=== PATIENT | female | born 2000 | race Caucasian/White ===

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

== ENCOUNTER 2022-03-11 00:48 | Emergency (ER) | payer BC ==
[~2022-03-11] VITALS: Ht 165.1 cm; Wt 97.5 kg
[~2022-03-11 00:48] MED LIST changes: +CYCLOBENZAPRINE10 MG PO
[2022-03-11] MEDS ORDERED: MINOCYCLINE HYD50 MG PO (01:00)
[2022-03-11] MEDS ORDERED: METRONIDAZOLE45 G1 T (01:01)
[2022-03-11 01:16] LABS: BILIRUBIN Negative (Negative); BLOOD 3+ (Negative); CLARITY Clear (Clear); COLOR Yellow (Yellow); GLUCOSE Negative (Negative); KETONE Negative (Negative); LEUKO ESTERASE Trace (Negative); NITRITE Negative (Negative); PH 6.5 (4.5-8.0)
[2022-03-11 01:25] LABS: BACTERIA 1+; MUCOUS 1+; RBC 16-20 rbc/hpf (0-2)
[2022-03-11] MEDS ORDERED: SEPTDS PO (02:46)
== END 2022-03-11 03:02 | disposition home or self-care (01) ==
LOC: ED 00:48
PROVIDERS: Emergency Medicine
DX: N39.0 Urinary tract infection, site not specified (principal); M79.7 Fibromyalgia; Z88.8 Allergy status to other drugs, medicaments and biological substances

== ENCOUNTER 2022-05-22 03:41 | Emergency (ER) | payer BC ==
[~2022-05-22 03:41] MED LIST changes: +METRONIDAZOLE45 G1 T; +MINOCYCLINE HYD50 MG PO; +SEPTDS PO
[2022-05-22] MEDS ORDERED: NAPROXEN250 MG PO (03:57)
[2022-05-22] MEDS ORDERED: METHOCARBAMOL750 M1 PO (03:57)
== END 2022-05-22 04:11 | disposition home or self-care (01) ==
LOC: ED 03:41
DX: S39.012A Strain of muscle, fascia and tendon of lower back, initial encounter (principal); M54.31 Sciatica, right side; M25.551 Pain in right hip; M79.604 Pain in right leg; J45.909 Unspecified asthma, uncomplicated; M79.7 Fibromyalgia; Z88.8 Allergy status to other drugs, medicaments and biological substances; X50.0XXA Overexertion from strenuous movement or load, initial encounter; Y93.89 Activity, other specified; Y92.009 Unspecified place in unspecified non-institutional (private) residence as the place of occurrence of the external cause; Y99.0 Civilian activity done for income or pay

== ENCOUNTER 2023-01-18 08:47 | Emergency (ER) | payer BC ==
[~2023-01-18] VITALS: Ht 165.1 cm; Wt 98.4 kg
[~2023-01-18 08:47] MED LIST changes: +METHOCARBAMOL750 M1 PO
[2023-01-18] MEDS ORDERED: Motrin,Rufen800 MG PO (09:06)
[2023-01-18] MEDS ORDERED: ZITHROMAX250 MG PO (09:06)
== END 2023-01-18 09:13 | disposition home or self-care (01) ==
LOC: ED 08:47
DX: J02.9 Acute pharyngitis, unspecified (principal); J45.909 Unspecified asthma, uncomplicated; F90.9 Attention-deficit hyperactivity disorder, unspecified type; Z88.8 Allergy status to other drugs, medicaments and biological substances

== ENCOUNTER 2023-06-24 20:19 | Emergency (ER) | payer BC ==
[~2023-06-24] VITALS: Ht 167.6 cm; Wt 99.3 kg
[~2023-06-24 20:19] MED LIST changes: +Motrin,Rufen800 MG PO; +ZITHROMAX250 MG PO
[2023-06-24] MEDS ORDERED: Ondansetron Hydrochloride 4 MG TAB SL ONE (21:00)
[2023-06-24] MEDS ORDERED: Acetaminophen/Hydrocodone 5 MG/325 MG TABLET PO ONE (21:00)
[2023-06-24 21:38] LABS: BILIRUBIN Negative (Negative); BLOOD Negative (Negative); CLARITY Cloudy (Clear); COLOR Yellow (Yellow); GLUCOSE Negative (Negative); KETONE Negative (Negative); LEUKO ESTERASE Negative (Negative); NITRITE Negative (Negative); SPECIFIC GRAVITY 1.025 (1.001-1.030); UROBILINOGEN 0.2 E.U./dl (0.0-1.0)
[2023-06-24 21:44] LABS: BACTERIA 2+; RBC 0-2 rbc/hpf (0-2)
[2023-06-24] MEDS ORDERED: MELOXICAM7.5 MG PO (22:10)
== END 2023-06-24 22:23 | disposition home or self-care (01) ==
LOC: ED 20:19
PROVIDERS: Nurse Practitioner Family
DX: M25.552 Pain in left hip (principal); G89.29 Other chronic pain; R11.0 Nausea; R10.9 Unspecified abdominal pain; F41.9 Anxiety disorder, unspecified; M79.7 Fibromyalgia; J45.909 Unspecified asthma, uncomplicated